=== PATIENT | female | born 2000 | race Caucasian/White ===

== ENCOUNTER 2019-12-02 10:39 | Emergency (ER) | payer MEDICAID ==
[~2019-12-02] VITALS: Ht 162.6 cm; Wt 67.8 kg
[2019-12-02 10:40] VITALS: BP 109/78
[2019-12-02] MEDS ORDERED: TERB30CR22 TP (11:13)
== END 2019-12-02 11:47 | disposition home or self-care (01) ==
LOC: ER 10:40
DX: B35.3 Tinea pedis (principal); Z79.899 Other long term (current) drug therapy
CPT/HCPCS: 99282